=== PATIENT | male | born 1955 | race Caucasian/White ===

== ENCOUNTER → 2018-01-11 | Outpatient (CLI) | payer MEDICAID | LOC: FIMAGING 08:05 | PROVIDERS: ATTEND Thoracic Surgery (Cardiothoracic Vascular Surgery) | DX: J90 Pleural effusion, not elsewhere classified (principal); Z98.890 Other specified postprocedural states ==

== ENCOUNTER → 2018-02-01 | Outpatient (CLI) | payer MEDICAID | LOC: FIMAGING 14:21 | PROVIDERS: ATTEND Internal Medicine Infectious Disease | DX: J86.9 Pyothorax without fistula (principal) ==